=== PATIENT | female | born 1960 | race Two or more races ===

== ENCOUNTER 2017-12-28 05:09 | Inpatient (IN) | payer OTHER ==
[~2017-12-28] VITALS: Ht 160 cm; Wt 108.9 kg
[2017-12-28] VITALS (14 sets, daily range): BP systolic 104–162; BP diastolic 60–87
--- NOTE | 2017-12-28 05:45 | NUR ---
MS DOPE FIRER NOTES ADMITTED 57 YO FEMALE PT FOR RT TOTAL KNEE ARTHROPLASTY. ALERT, AWAKE, VERBALLY RESPONSIVE, SWEDISH SPEAKING. ON ROOM AIR, RESPIRATIONS EVEN, UNLABORED, NO APPARENT DISTRESS NOTED. DENIES ANY PAIN OR DISCOMFORT AT THIS TIME. IV SITE RT HAND INTACT, PATENT. CALL LIGHT WITHIN REACH. BODY ASSESSMENT DONE. ATTENDED ALL NEEDS. WILL CONTINUE TO MONITOR ACCORDINGLY. VS 110/66 P71 T 98.0 R20
[2017-12-28] MEDS ORDERED: BUPIVACAINE 0.25% 75 MG/30 ML VIAL ONE ×2 (06:03→07:52)
[2017-12-28] MEDS ORDERED: ANESTHESIA TRAY IN PYXIS 1 EA TRAY MC ONE (06:03)
[2017-12-28] MEDS ORDERED: KETOROLAC TROMETHAMINE INJ 30 MG/ML VIAL ONE (06:04)
[2017-12-28] MEDS ORDERED: BACITRACIN 50000 UNITS/VIAL ONE (06:04)
[2017-12-28] MEDS ORDERED: BUPIVACAINE MPF 0.75% 30 ML VIAL ONE ×2 (06:20→07:52)
--- NOTE | 2017-12-28 06:35 | NUR ---
MS RN NOTE PT PICKED UP BY THE SURGERY TEAM IN STABLE CONDITION, ALERT, AWAKE, NO APPARENT DISTRESS NOTED. ATTENDED ALL NEEDS.
[2017-12-28] MEDS ORDERED: FENTANYL PF 100MCG/2ML AMPUL ONE ×2 (06:42→09:01)
[2017-12-28] MEDS ORDERED: SUCCINYLCHOLINE CHLORIDE 20 MG/ML VIAL ONE (06:42)
[2017-12-28] MEDS ORDERED: TRANEXAMIC ACID 3,000 MG in SODIUM CHLORIDE IRRIG SOLUTION 70 ML IR ONE (07:30)
[2017-12-28] MEDS ORDERED: MORPHINE SULFATE INJ 4 MG/ML DISP.SYRIN ONE (09:45)
[2017-12-28] MEDS ORDERED: HYDROCODONE/APAP 5/325MG 1 EACH TABLET PO PRN (10:00)
[2017-12-28] MEDS ORDERED: Z GUARD REMEDY 2 OZ OINT TP PRN (10:00)
[2017-12-28] MEDS ORDERED: MAGNESIUM HYDROXIDE 30 ML UDC PO PRN (10:00)
[2017-12-28] MEDS ORDERED: ONDANSETRON HCL/PF 4 MG/2 ML VIAL IVP PRN ×2 (10:00→12:00)
[2017-12-28] MEDS ORDERED: ACETAMINOPHEN 325 MG TABLET PO PRN ×2 (10:00→11:30)
[2017-12-28] MEDS ORDERED: MAG HYDROX/AL HYDROX/SIMETH 30 ML UDC PO PRN (10:00)
[2017-12-28] MEDS ORDERED: ZOLPIDEM TARTRATE 5 MG TABLET PO PRN ×2 (10:00→11:30)
--- NOTE | 2017-12-28 10:30 | NUR ---
MS RN NOTE - ADMIT FROM SURGERY Patient was transferred to [facility] from surgery for right total knee replacement. Patient arrives in stable condition, no SOB, no signs/Sx of acute distress, vital signs WNL, AAOx4. Patient rests comfortably in bed and has been provided education on room and unit. Right knee incision is covered with dressing, which is dry and intact and to be changed by MD only (as per order). Will continue to monitor vitals q15min for 1hr, q30min for 1hr, then q1hr for 4 hr.
[2017-12-28] MEDS ORDERED: MORPHINE SULFATE INJ 4 MG/ML DISP.SYRIN IM PRN (11:30)
[2017-12-28] MEDS ORDERED: diphenhydrAMINE HCL 25 MG CAPSULE PO PRN (11:30)
[2017-12-28] MEDS ORDERED: BISACODYL SUPP (10 MG) 10 MG/SUPP.RECT SUPP.RECT RC PRN (11:30)
[2017-12-28] MEDS ORDERED: SENNOSIDES 8.6 MG TABLET PO PRN (11:30)
[2017-12-28] MEDS ORDERED: NALOXONE HCL 0.4 MG/ML AMPUL IV PRN (11:30)
[2017-12-28] MEDS ORDERED: MENTHOL/CETYLPYRD (CEPACOL) 1 LOZ LOZENGE MM PRN (11:30)
[2017-12-28] MEDS ORDERED: CLONIDINE HCL 0.1 MG TABLET PO PRN (11:30)
[2017-12-28] MEDS ORDERED: MORPHINE SULFATE 30 MG in IV NS 0.9% 28 ML, PCA TOTAL VOLUME 1 BAG IV PRN ×3 (12:00)
[2017-12-28] MEDS: IV D5/0.45 NACL 1,000 ML IV PRN ×3 (12:45→22:22)
--- NOTE | 2017-12-28 13:00 | NUR ---
MS RN NOTE UPDATE Patient remains comfortable in bed and was able to eat a full lunch (regular diet) with no nausea or vomiting. Will continue to monitor.
[2017-12-28] MEDS: HYDROCODONE/APAP 10/325MG 1 EA TABLET PO PRN (14:10)
--- NOTE | 2017-12-28 14:30 | NUR ---
MS RN NOTE - PT UPDATE Patient seen by PT. ROM exercises done in bed. Knee immoblizer was too small for patient; Attentive.ly called and stated it is a "one size fits all" and will get back to us. PT put on CPM on right knee. Patient is comfortable in bed and states with pe manager that [place] has been effective at relieving pain.
[2017-12-28] MEDS: ANCEF 1 GM/50 ML D5W IV SCH ×4 (15:38→22:05)
[2017-12-28] MEDS: DOCUSATE SODIUM 100 MG CAPSULE PO SCH (17:27)
--- NOTE | 2017-12-28 18:45 | NUR ---
MS RN CLOSING NOTES Patient s/p total R knee arthroplasty is resting comfortably in bed, AAOx4, breathing on RA with no SOB or signs of acute distress. Vital signs remained WNL after surgery and throughout shift. Patient seen by PT; CPM device currently off and next to the bedside. Patient states pain is well-controlled with [place] and pain of 3/10 is tolerable. All patient needs and physician orders carried out. Patient care to be endorsed to night stocker nurse.
--- NOTE | 2017-12-28 19:05 | NUR ---
RN OPENING NOTES RECEIVED PATIENT IN BED, ALERT AND ORIENTED X 4, PT NOTED WITH NO SOB, BREATHING EVEN AND UNLABORED, CONTINUES TO RECEIVE IVF ORDERED, INFUSING WELL VIA IV PERIPHERAL LINE ON LEFT HAND G#20, NOTED JACKSON CATHETER DRAINING WELL WITH YELLOW CLEAR URINE. ALL PATIENT'S NEEDS ATTENDED TO AT THIS TIME. PT AWARE OF SAFETY NEEDS, PLACED CALL LIGHT WITHIN EASY REACH, BED IN LOW POSITION AND LOCKED IN PLACE.
[2017-12-28] MEDS: oxyCODONE IR immediate release 5 MG PO PRN (19:54)
[2017-12-28] MEDS: PANTOPRAZOLE 40 MG TABLET.DR PO SCH (22:02)
--- NOTE | 2017-12-28 22:30 | NUR ---
RN NOTE PATIENT SEEN AND EVALUATED BY DR. TANNER WITH NEW ORDER TO DISCONTINUE ORDER FOR MORPHINE VIA HOLIDAY DETECTOR OPERATOR PUMP PRN. ALL ORDERS NOTED AND CARRIED OUT. PT MADE AWARE AND AGREES.
[2017-12-29] MEDS: oxyCODONE IR immediate release 5 MG PO PRN ×2 (00:32→07:39)
[2017-12-29] MEDS: IV D5/0.45 NACL 1,000 ML IV PRN ×2 (06:26→19:37)
--- NOTE | 2017-12-29 06:34 | NUR ---
RN CLOSING NOTES PATIENT SITTING UP IN BED, ALERT AND ORIENTED X 4, NO SOB NOTED, BREATHING EVEN AND UNLABORED. PATIENT IS S/P RIGHT TKA WITH NO NOTED BLEEDING ON SURGICAL SITE, DRESSING CLEAN AND INTACT. PT CONTINUES TO RECEIVE IVF ORDERED VIA RH IV PERIPHERAL LINE, INFUSING WELL, WITH JACKSON CATHETER DRAINING WITH CLEAR YELLOW URINE. ALL PATIENT'S ATTENDED TO THROUGHOUT THE SHIFT, PLACED CALL LIGHT WITHIN EASY REACH, PLACED BED IN LOW POSITION AND LOCKED IN PLACE. PATIENT IN NO ACUTE DISTRESS AND IN STABLE CONDITION. WILL ENDORSE TO AM SHIFT NURSE FOR CONTINUITY OF CARE.
[2017-12-29 06:50] LABS: BASOPHILS % (AUTO) 0.4 % (0.0-2.0); EOSINOPHILS % (AUTO) 3.3 % (0.0-6.0); HEMATOCRIT 34 % (33-45); HEMOGLOBIN 11.6 g/dL (11.5-14.8); LYMPHOCYTES # (AUTO) 1.6 /CMM (0.8-4.8); MEAN CORPUSCULAR HGB CONC 34 g/dl (31.0-36.0); MEAN CORPUSCULAR VOLUME 88 fL (82-100); MONOCYTES # (AUTO) 0.7 /CMM (0.1-1.30); MONOCYTES % (AUTO) 7.7 % (2.0-12.0); NEUTROPHILS # (AUTO) 6.6 /CMM (1.8-8.9); NEUTROPHILS % (AUTO) 71.6 % (43.0-81.0); PLATELET COUNT (AUTO) 228 /CMM (150-450); RDW COEFFICIENT OF VARIATION 14.8 (11.5-15.0); RED BLOOD CELL COUNT(AUTO) 3.91 MIL/uL (4.0-5.2); WHITE BLOOD COUNT (AUTO) 9.3 K/uL (4.3-11.0)
[2017-12-29 07:01] LABS: CALCIUM, SERUM 7.8 mg/dL (8.5-10.1); CREATININE 0.6 mg/dL (0.6-1.3); MAGNESIUM 1.9 mg/dL (1.8-2.4); PHOSPHORUS 3.6 mg/dL (2.5-4.9); POTASSIUM 4.4 mmol/L (3.5-5.1)
--- NOTE | 2017-12-29 07:20 | NUR ---
MS RN NOTES PATIENT RECEIVED RESTING INSIDE ROOM, AWAKE, ALERT AND ORIENTED, MALTESE-SPEAKING ONLY. ABLE TO MAKE NEEDS KNOWN AND FOLLOW SIMPLE INSTRUCTIONS. PATIENT BREATHING EVEN AND UNLABORED. NO SOB OR ACUTE DISTRESS NOTED. PATIENT CALM AND RELAXED. NO CHANGES IN LOC NOTED AT THIS TIME. PATIENT S/P RIGHT TKA, DRESSING IN PLACE. NO DRAINAGE NOTED ON DRESSING. WILL CONTINUE TO MONITOR. BED LOCKED AND IN LOW POSITION. BILATERAL UPPER SIDE RAILS UP AND LOCKED. CALL LIGHT WITHIN EASY REACH
[2017-12-29 08:00] VITALS: BP 132/65
[2017-12-29] MEDS: DOCUSATE SODIUM 100 MG CAPSULE PO SCH ×2 (08:44→16:21)
[2017-12-29] MEDS: ASPIRIN 325 MG TABLET PO SCH ×2 (08:44→16:21)
[2017-12-29] MEDS: HYDROCODONE/APAP 10/325MG 1 EA TABLET PO PRN ×2 (10:33→14:57)
--- NOTE | 2017-12-29 11:50 | NUR ---
MS RN NOTES PLACED CALL TO [facility] AND SPOKE WITH UMAIR REGARDING PATIENT'S RIGHT KNEE IMMOBILIZER. SAID THAT THE SIZE IS UNIVERSAL AND THERE IS NO LARGER SIZE THAN WHAT THEY HAVE PROVIDED. VERBALIZED THAT SHE WILL DISCUSS THE MATTER WITH THE LEVEL GLASS VIAL FILLER TO POSSIBLY REPLACE IT WITH A SIMILAR, LARGER EQUIPMENT.
[2017-12-29] MEDS ORDERED: FENTANYL PF 100MCG/2ML AMPUL IV PRN (14:30)
[2017-12-29 16:00] VITALS: BP 110/65
--- NOTE | 2017-12-29 19:19 | NUR ---
MS RN NOTES PATIENT RESTING INSIDE ROOM, AWAKE, ALERT AND ORIENTED. ABLE TO MAKE NEEDS KNOWN AND FOLLOW SIMPLE INSTRUCTIONS. BREATHING EVEN AND UNLABORED. NO SOB OR ACUTE DISTRESS NOTED. PATIENT AFEBRILE, SKIN DRY AND WARM TO TOUCH. NO CHANGES IN LOC NOTED. PATIENT CALM AND RELAXED. NO CHANGES IN LOC NOTED AT THIS TIME. IV SITE ON RIGHT HAND INTACT AND PATENT, NO BLEEDING OR DRAINAGE NOTED. JACKSON CATHETER IN PLACE WITH CLEAR YELLOW URINE OUTPUT NOTED. ENDORSED TO IFEANYI HAMILTON FOR RAMIN. BED LOCKED AND IN LOW POSITION. BILATERAL UPPER SIDE RAILS UP AND LOCKED. CALL LIGHT WITHIN EASY REACH
--- NOTE | 2017-12-29 19:45 | NUR ---
MS RN INITIAL NOTE PT IS IN BED AWAKE AND ALERT, ABLE TO MAKE NEEDS KNOWN. NO SIGNS OF SOB OR DISTRESS, BREATHING EVENLY AND UNLABORED ON RA. DENIES PAIN AT THIS TIME. JACKSON CATHETER IS INTACT AND DRAINING. IV ACCESS IS INTACT WITH D5 1/2 NS INFUSING AT 75ML PER HOUR.DRESSING IS INTACT AND PATENT, NO SIGNS OF DRAINAGE. BED IS IN LOW AND LOCKED POSITION, CALL LIGHT WITHIN REACH. WILL CONTINUE TO MONITOR PT
[2017-12-29 20:00] VITALS: BP 102/59
[2017-12-29] MEDS: PANTOPRAZOLE 40 MG TABLET.DR PO SCH (21:18)
[2017-12-29 21:35] VITALS: BP 102/59
[2017-12-30] MEDS: HYDROCODONE/APAP 10/325MG 1 EA TABLET PO PRN ×4 (03:54→17:36)
[2017-12-30] MEDS ORDERED: MAGNESIUM HYDROXIDE 30 ML UDC PO ONE (06:00)
[2017-12-30 06:18] LABS: CALCIUM, SERUM 8.2 mg/dL (8.5-10.1); CREATININE 0.6 mg/dL (0.6-1.3); POTASSIUM 4.3 mmol/L (3.5-5.1)
[2017-12-30 06:20] LABS: BASOPHILS % (AUTO) 0.3 % (0.0-2.0); EOSINOPHILS % (AUTO) 3.3 % (0.0-6.0); HEMATOCRIT 33 % (33-45); HEMOGLOBIN 11.1 g/dL (11.5-14.8); LYMPHOCYTES # (AUTO) 1.6 /CMM (0.8-4.8); LYMPHOCYTES % (AUTO) 13.5 % (20.0-44.0); MEAN CORPUSCULAR HGB CONC 34 g/dl (31.0-36.0); MEAN CORPUSCULAR VOLUME 89 fL (82-100); MONOCYTES # (AUTO) 0.9 /CMM (0.1-1.30); MONOCYTES % (AUTO) 7.7 % (2.0-12.0); NEUTROPHILS # (AUTO) 8.8 /CMM (1.8-8.9); NEUTROPHILS % (AUTO) 75.2 % (43.0-81.0); PLATELET COUNT (AUTO) 209 /CMM (150-450); RDW COEFFICIENT OF VARIATION 14.4 (11.5-15.0); RED BLOOD CELL COUNT(AUTO) 3.71 MIL/uL (4.0-5.2); WHITE BLOOD COUNT (AUTO) 11.8 K/uL (4.3-11.0)
--- NOTE | 2017-12-30 06:27 | NUR ---
MS RN CLOSING NOTE PT IS IN BED AWAKE AND ALERT, ABLE TO MAKE NEEDS KNOWN. BREATHING EVENLY AND UNLABORED ON RA, NO SIGNS OF SOB OR DISTRESS. DENIES PAIN AT THIS TIME. JACKSON CATHETER IS INTACT AND PATENT. DRESSING ON RIGHT LEG IS INTACT WITH NO SIGNS OF BLEEDING OR DRAINAGE. IV ACCESS IS INTACT AND PATENT WITH NS AT 75 ML/HR. PRUNE JUICE AND M.O.M. GIVEN TO HELP WITH CONSTIPATION. NO ACUTE CHANGES THROUGHOUT THE SHIFT. ALL NEEDS WERE ANTICIPATED AND MET. BED IS IN LOVE AND LOCKED POSITION, CALL LIGHT WITHIN REACH. WILL ENDORSE TO DAYSHIFT
--- NOTE | 2017-12-30 07:40 | NUR ---
MS RN NOTES PATIENT RECEIVED RESTING INSIDE ROOM. SLEEPING, EASILY AROUSABLE THROUGH VERBAL AND TACTILE STIMULI. BREATHING EVEN AND UNLABORED. NO SOB OR ACUTE DISTRESS NOTED AT THIS TIME. DENIES ANY PAIN OR DISCOMFORT. DRESSING IN PLACE ON RLE, NO DRAINAGE OR LEAK NOTED ON DRESSING. CPM AND LEG BRACE AT BEDSIDE. WILL CONTINUE TO MONITOR. BED LOCKED AND IN LOW POSITION. BILATERAL UPPER SIDE RAILS UP AND LOCKED. CALL LIGHT WITHIN EASY REACH
[2017-12-30 08:00] VITALS: BP 117/62
[2017-12-30] MEDS: ASPIRIN 325 MG TABLET PO SCH ×2 (08:26→17:33)
[2017-12-30] MEDS: DOCUSATE SODIUM 100 MG CAPSULE PO SCH ×2 (08:26→17:33)
[2017-12-30] MEDS ORDERED: ASPI-992 PO (09:59)
--- NOTE | 2017-12-30 10:30 | NUR ---
MS RN NOTES PATIENT AMBULATORY. JACKSON CATHETER REMOVED ORDERED AND VERIFIED WITH JORGE WILKERSON TO REMOVE JACKSON WHEN PATIENT IS AMBULATORY. NO BLEEDING NOTED UPON JACKSON CATHETER REMOVAL. WILL CONTINUE TO MONITOR
--- NOTE | 2017-12-30 11:59 | NUR ---
MS RN NOTES PATIENT SEEN AND AMBULATED WITH PT. PATIENT AMBULATED ON THE HALLWAY. NO EPISODE OF FALL OR INJURY. PATIENT WENT TO BATHROOM AND REPORTED SHE HAD URINE OUTPUT. NO HEMATURIA OR FOUL URINE ODOR NOTED AT THIS TIME. WILL CONTINUE TO MONITOR
[2017-12-30 16:00] VITALS: BP 113/57
--- NOTE | 2017-12-30 18:08 | NUR ---
MS RN NOTES PATIENT WITH ORDER FOR DISCHARGE. RECEIVED CALL FROM MANAGER MANAGED CARE, SAID PATIENT WILL BE TRANSFERRED TO [facility], LIBRARY SERIALS ASSISTANT AT 2030. PATIENT WILL BE IN ROOM 4420A. PLACED CALL TO [facility] AND SPOKE WITH JOY YADAV. REPORT GIVEN. PATIENT AWARE AND VERBALIZED UNDERSTANDING. WILL CONTINUE TO MONITOR
--- NOTE | 2017-12-30 19:00 | NUR ---
MS RN NOTES RECEIVE PT IN BED A/O X4 , NO S/S OF DISTRESS, STABLE, SAFETY MEASURES IN PLACE, CALL LIGHT WITHIN REACH, WILL CONTINUE TO MONITOR
--- NOTE | 2017-12-30 19:11 | NUR ---
MS RN NOTES PATIENT RESTING INSIDE ROOM. AWAKE, ALERT AND ORIENTED. ABLE TO MAKE NEEDS KNOWN AND FOLLOW SIMPLE INSTRUCTIONS. BREATHING EVEN AND UNLABORED. NO SOB OR ACUTE DISTRESS NOTED. NO CHANGES IN LOC NOTED. PATIENT AFEBRILE, SKIN DRY AND WARM TO TOUCH. PATIENT AWARE OF DISCHARGE, CREDIT CONTROL CLERK TIME AT 2030. ENDORSED TO PM SHIFT FOR RAMIN. BED LOCKED AND IN LOW POSITION. BILATERAL UPPER SIDE RAILS UP AND LOCKED. CALL LIGHT WITHIN EASY REACH
[2017-12-30 20:00] VITALS: BP 113/59
--- NOTE | 2017-12-30 22:07 | NUR ---
PATIENT DISCHARGE PATIENT LEFT AT 2140 TO [facility]IA [facility] OR MEDICAL BY NELLIE 2 EMT. PATIENT ON STABLE CONDITION NO S/S OF DISTRESS NOTED, NO COMPLAINS OF PAIN, VS STABLE, TOLERATING ROOM AIR 98%, HEALTH EDUCATION AND EXIT CARE WAS PROVIDED, EDUCATION ABOUT DISEASE AND RISKS AND BENEFITS FOLLOW UP CARE PROVIDED, VERBALIZED UNDERSTANDING. DOCUMENTS WAS PROVIDED. CONTINUE MEDICATION PRESCRIPTION WAS PROVIDED. VERBALIZED UNDERSTANDING. IV SITE WAS REMOVED WITH MINIMAL BLEEDING, APPLIED CLEAN DRESSING FOR PRESSURE AND KEPT CLEAN AND DRY. TOLERATED PROCEDURE WELL. ALL BELONGINGS WAS TAKEN, PATIENT APPRECIATIVE TO NURSES AND THANKFUL.
== END 2017-12-30 21:40 | DRG 470 ==
LOC: DS 05:09 → MED 05:35
PROVIDERS: ADMIT Family Medicine; ATTEND Family Medicine
PROC: 0SRC0J9 Replacement of Right Knee Joint with Synthetic Substitute, Cemented, Open Approach (ICD-10-PCS; principal; 2017-12-28 06:30)
DX: M17.11 Unilateral primary osteoarthritis, right knee (principal); Z68.41 Body mass index [BMI] 40.0-44.9, adult; E66.9 Obesity, unspecified; Z98.890 Other specified postprocedural states; Z82.49 Family history of ischemic heart disease and other diseases of the circulatory system
CPT/HCPCS: 36415; 80048-TC; 83735-TC; 84100-TC; 85025-TC; 87081-TC; 88305-TC; 88311-TC; 97110-TC; 97116-TC; 97530-TC; 97760-TC; A4216; A4217; A6402; C1713; J0330; J0690; J1885; J2270; J2405; J2704; J3010; J3490; J7060; L1830; Z7610